=== PATIENT | male | born 1965 | race African-American/Black ===

== ENCOUNTER 2017-02-02 16:42 | Emergency (ER) | payer MEDICARE, OTHER ==
[~2017-02-02] VITALS: Ht 182.9 cm; Wt 84.4 kg
[~2017-02-02 16:42] MED LIST: CLIN300C86 PO; IBUP-1027 PO
[2017-02-02 16:57] VITALS: BP 138/91
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
== END 2017-02-02 17:28 | disposition home or self-care (01) ==
LOC: ER 16:42
DX: Z76.0 Encounter for issue of repeat prescription (principal); G89.29 Other chronic pain; M54.9 Dorsalgia, unspecified; F41.9 Anxiety disorder, unspecified; F31.9 Bipolar disorder, unspecified; I25.2 Old myocardial infarction; I10 Essential (primary) hypertension; F20.9 Schizophrenia, unspecified; F43.10 Post-traumatic stress disorder, unspecified; F14.10 Cocaine abuse, uncomplicated; Z95.1 Presence of aortocoronary bypass graft; Z88.0 Allergy status to penicillin
CPT/HCPCS: 99281